=== PATIENT | female | born 1965 | race Two or more races ===

== ENCOUNTER → 2017-09-15 | Outpatient (CLI) | payer BC ==
[2015-09-04 10:12] VITALS: BP 147/70
[~2017-09-15] MED LIST: INSU100V13 SQ; LISI-334 PO; METF500T4 PO; SIMV40TA3 PO
--- NOTE | 2017-09-21 09:59 | KCIC ---
Bilateral digital screening mammograms: Reason for examination: Routine screening. Comparison is made to previous studies dated 03/09/2012 and 02/04/2011. Interpretation was made with the benefit of CAD. The skin and nipples show no abnormalities. No abnormal axillary lymph nodes are seen. The breast parenchyma is heterogeneously dense. (Breast density: Category C.) There continues to be some nodular parenchymal asymmetry in the upper outer quadrant of the left breast which has not changed. There are no new dominant masses, suspicious calcifications or architectural distortion. Impression: No evidence of malignancy. Recommend routine screening. Your patient's mammogram demonstrates that she has dense breast tissue (breast density category C or D), which could hide abnormalities, and if she has other risk factors for breast cancer that have been identified, she might benefit from supplemental screening tests that may be suggested by you as her ordering physician. Dense breast tissue, in and of itself, is a relatively common condition. Therefore, this information is not provided to cause undue concern, but rather to raise your awareness and to promote discussion with your patient regarding the presence of other risk factors, in addition to dense breast tissue. Your patient's mammography results will be sent to her. BI-RAD Category 2: Benign. "Our facility is accredited by the [employer] Mammography Program." This patient's information has been entered into a reminder system for the patient to be notified with the results of her examination and a target date for the next mammogram. Electronically signed by: Radhika Stevens MD (09/21/2017 9:55 AM) [id number]
== END | disposition home or self-care (01) ==
LOC: KCIC MAMMO 13:17
PROVIDERS: ATTEND Family Medicine
DX: Z12.31 Encounter for screening mammogram for malignant neoplasm of breast (principal)
CPT/HCPCS: G0202; 77067